=== PATIENT | male | born 1960 | race African-American/Black ===

== ENCOUNTER 2018-09-22 04:23 | Emergency (ER) | payer BC ==
[2018-09-22] MEDS ORDERED: METOCLOPRAMIDE HCL INJECTION 10 MG/2 ML VIAL IVPUSH ONE (06:26)
[2018-09-22] MEDS ORDERED: FAMOTIDINE 20 MG/50 ML IVPB 20 MG/50 ML MG IVPB ONE ×2 (06:26→07:24)
[2018-09-22] MEDS ORDERED: SODIUM CHLORIDE 1,000 ML IV STA (06:29)
[2018-09-22] MEDS ORDERED: morphine CARPU-JECT 2 MG/1 ML DISP.SYRIN IVPUSH ONE (06:29)
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
[2018-09-22 06:43] VITALS: BP 119/78; PULSE 78; TEMP 97.3; BMI 34.9
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
[2018-09-22] MEDS ORDERED: KETOROLAC TROMETHAMINE 30 MG/1 ML VIAL IVPUSH ONE (07:18)
[2018-09-22] MEDS ORDERED: METOCLOPRAMIDE HCL INJECTION 10 MG/2 ML VIAL ONE (07:24)
[2018-09-22] MEDS ORDERED: MORPHINE SULFATE 2 MG/ML VIAL ONE (07:24)
--- NOTE | 2018-09-22 07:51 | PDOC ---
*Physical Exam - Vital Signs Last Vital Signs Temp Pulse Resp BP Pulse Ox 97.3 F L 78 18 119/78 99 09/22/18 04:30 09/22/18 04:30 09/22/18 04:30 09/22/18 04:30 09/22/18 04:30 ED Treatment Course - LABORATORY CBC & Chemistry Diagram: 09/22/18 07:15 09/22/18 07:15 Medical Decision Making - Medical Decision Making 09/22/18 07:[address] Tavarez. Patient is 57M w/ pmhx of kidney stones (s/p stent) and HLD here today with abdominal pain. History and exam consistent with kidney stone. Labs and imaging pending. 09/22/18 08:40 Patient reassessed, no longer in pain. Asking to go home so he can go to work at 9am. CT scan official read pending. Will discharge with uro follow up. 09/22/18 18:18 Scan reviewed, no acute pathology. Patient has appropriate follow up. *DC/Admit/Observation/Transfer Diagnosis at time of Disposition: Kidney stone - Discharge Dispostion Disposition: HOME Condition at time of disposition: Good Decision to Admit order: No - Referrals Referrals: Shelia Armando MD [Primary Care Provider] - Nam Bell MD [Staff Physician] - - Patient Instructions Printed Discharge Instructions: DI for Kidney Stones Additional Instructions: Please return if you have any new, worsening or concerning symptoms, especially fever, increasing pain, and vomiting. Please follow up with urology this week. - Post Discharge Activity
[2018-09-22] MEDS ORDERED: KETOROLAC TROMETHAMINE 30 MG/1 ML VIAL ONE (07:58)
[2018-09-22 08:03] LABS: URINE APPEARANCE CLEAR; URINE BILIRUBIN NEGATIVE (<2.0 mg/dL); URINE COLOR YELLOW; URINE GLUCOSE (UA) NEGATIVE (NEGATIVE); URINE KETONE NEGATIVE (NEGATIVE); URINE LEUK ESTERASE NEGATIVE (NEGATIVE); URINE NITRITE NEGATIVE (NEGATIVE); URINE PROTEIN NEGATIVE (NEGATIVE); URINE UROBILINOGEN 4.0 E.U/dl mg/dL (0.2-1.0)
[2018-09-22 08:13] LABS: BASO % 0.5 % (0-2.0); EOS % 0.1 % (0-4.5); HEMATOCRIT 41.5 % (35.4-49); HEMOGLOBIN 13.8 GM/dL (11.7-16.9); LYMPH % 6.5 % (8-40); MCH 29.5 pg (25.7-33.7); MCHC 33.3 g/dl (32.0-35.9); MEAN CELL VOLUME 88.6 fl (80-96); MEAN PLT VOLUME 8.8 fl (7.5-11.1); MONO % 4.3 % (3.8-10.2); NEUT % 88.6 % (42.8-82.8); PLATELET COUNT 238 K/MM3 (134-434); RBC 4.69 M/mm3 (4.00-5.60); RDW 13.1 % (11.9-15.9); WHITE BLOOD COUNT 7.9 K/mm3 (4.0-10.0)
[2018-09-22 08:29] LABS: ALBUMIN 4.2 g/dl (3.4-5.0); ALK PHOS 72 U/L (45-117); ANION GAP 5 MMOL/L (8-16); BILIRUBIN,TOTAL 0.7 mg/dL (0.2-1); BLOOD UREA NITROGEN 13 mg/dL (7-18); CHLORIDE 104 mmol/L (98-107); CO2 30 mmol/L (21-32); CREATININE 1.3 mg/dL (0.55-1.3); GLUCOSE,RANDOM 105 mg/dL (74-106); LIPASE 109 U/L (73-393); POTASSIUM 4.4 mmol/L (3.5-5.1); SGOT/AST 49 U/L (15-37); SGPT/ALT 63 U/L (13-61); SODIUM 139 mmol/L (136-145); TOT PROT 7.9 g/dl (6.4-8.2)
== END 2018-09-22 08:46 | disposition home or self-care (01) ==
LOC: JER 04:23
PROC: 3E033GC Introduction of Other Therapeutic Substance into Peripheral Vein, Percutaneous Approach (ICD-10-PCS; principal; 2018-09-22)
PROC: 3E033GC Introduction of Other Therapeutic Substance into Peripheral Vein, Percutaneous Approach (ICD-10-PCS; 2018-09-22)
PROC: 3E033NZ Introduction of Analgesics, Hypnotics, Sedatives into Peripheral Vein, Percutaneous Approach (ICD-10-PCS; 2018-09-22)
PROC: 3E0333Z Introduction of Anti-inflammatory into Peripheral Vein, Percutaneous Approach (ICD-10-PCS; 2018-09-22)
DX: N20.0 Calculus of kidney (principal); Z87.442 Personal history of urinary calculi; K21.9 Gastro-esophageal reflux disease without esophagitis; E78.5 Hyperlipidemia, unspecified
CPT/HCPCS: 36415; 74176; 80053; 81003; 83690; 85025; 99281-25; J7030